=== PATIENT | female | born 1970 | race Hispanic/Latino ===

== ENCOUNTER 2017-06-09 18:58 | Emergency (ER) | payer OTHER ==
[2017-06-09] MEDS ORDERED: ONDANSETRON HCL MDV 20ML 2 MG/ML VIAL ONE (19:38)
[2017-06-09] MEDS ORDERED: KETOROLAC TROMETHAMINE 30MG/ML ONE (19:38)
== END 2017-06-09 20:55 | disposition home or self-care (01) ==
LOC: EDH 18:58
DX: S13.4XXA Sprain of ligaments of cervical spine, initial encounter (principal); V49.49XA Driver injured in collision with other motor vehicles in traffic accident, initial encounter; Y93.89 Activity, other specified; Y92.89 Other specified places as the place of occurrence of the external cause; Y99.8 Other external cause status
CPT/HCPCS: 71045; 72125; 96374; 96375; 99284; J1885